=== PATIENT | female | born 2000 | race African-American/Black ===

== ENCOUNTER 2019-03-08 23:13 | Emergency (ER) | payer OTHER ==
[~2019-03-08] VITALS: Ht 162.6 cm; Wt 55.0 kg
[2019-03-08] MEDS: KETOROLAC 30MG/ML VIAL IV STA (23:50)
[2019-03-08] MEDS: SODIUM CHLORIDE 0.9% 1,000 ML IV ONE (23:50)
[2019-03-09 00:16] LABS: BASOPHILS % 0.2 % (0.0-2.0); EOSINOPHILS % 0.6 % (0.0-5.0); HEMATOCRIT. 39.5 % (36.0-48.0); HEMOGLOBIN. 13.1 g/dL (12.0-16.0); LYMPHOCYTES % 15.5 % (20.0-50.0); MEAN CORPUSCULAR HEMOGLOBIN 30.3 pg (28.0-32.0); MEAN CORPUSCULAR VOLUME 91.5 fL (81.0-99.0); MEAN PLATELET VOLUME 10.4 fl (7.4-10.4); MONOCYTES % 4.9 % (2.0-8.0); NEUTROPHILS % 78.8 % (40.0-76.0); PLATELET 192 x1000/uL (130-400); RED BLOOD CELL COUNT 4.32 mill/uL (4.2-5.4); RED CELL DISTRIBUTION WIDTH 13.5 % (11.6-14.6)
[2019-03-09 00:17] LABS: CHLORIDE 106 mEq/L (98-107)
[2019-03-09 00:23] LABS: HCG SCREEN NEGATIVE
[2019-03-09 00:27] LABS: CLARITY URINE TURBID (CLEAR); COLOR URINE YELLOW (YELLOW); KETONES URINE 2+ (NEGATIVE); LEUKOCYTE ESTERASE URINE 1+ (NEGATIVE); NITRITE URINE NEGATIVE (NEGATIVE); OCCULT BLOOD URINE NEGATIVE (NEGATIVE); PH URINE 7.5 (4.5-8.0); PROTEIN URINE TRACE (NEGATIVE); SPECIFIC GRAVITY URINE 1.021 (1.005-1.030)
[2019-03-09] MEDS: ONDANSETRON HCL 4MG/2ML INJ IV ONE ×2 (00:46→03:55)
[2019-03-09] MEDS: NITROFURANTOIN 100MG M/M CAPSULE PO ONE (01:45)
[2019-03-09] MEDS: AZITHROMYCIN 500 MG TABLET PO ONE (02:30)
[2019-03-09] MEDS: DOXYCYCLINE HYCLATE 100MG CAPSULE PO ONE (02:30)
[2019-03-09] MEDS: MORPHINE SULFATE 4 MG/ML CPJ (NOT FOR IM USE) IV ONE (02:34)
[2019-03-09] MEDS ORDERED: IOHEXOL-300 100 ML BOTTLE ONE (03:12)
[2019-03-09 05:30] VITALS: BP 124/78
[2019-03-14 04:09] LABS: NEISSERIA GONORRHOEAE NAA Negative (Negative)
== END 2019-03-09 05:30 | disposition home or self-care (01) ==
LOC: ER 23:13
DX: N73.9 Female pelvic inflammatory disease, unspecified (principal); N39.0 Urinary tract infection, site not specified; F41.9 Anxiety disorder, unspecified; F32.9 Major depressive disorder, single episode, unspecified; Z90.49 Acquired absence of other specified parts of digestive tract; Z88.1 Allergy status to other antibiotic agents
CPT/HCPCS: 36415; 71045; 74177; 76830; 76856; 80053; 81003; 84703; 85025; 87210; 87491; 87591; 93005; 96361; 96374; 96375; 96376; 99284; J1885; J2270; J2405; J7030; Q9967